=== PATIENT | female | born 1940 | race Caucasian/White ===

== ENCOUNTER → 2019-11-17 11:38 | Outpatient (BNVA) | payer MEDICARE, SELFPAY | PROVIDERS: Family Provider Nurse Practitioner; PCP Nurse Practitioner; Visit Provider Nurse Practitioner Family | DX: R42 Dizziness and giddiness (principal); R00.1 Bradycardia, unspecified; R53.83 Other fatigue; D50.9 Iron deficiency anemia, unspecified | CPT/HCPCS: 80053; 82607; 82728; 83550; 84443; 85025 ==

== ENCOUNTER 2020-10-09 06:00 | Outpatient (RCR) | payer MEDICARE, SELFPAY | END 2020-10-23 23:59 | disposition home or self-care (01) | LOC: APT 06:00 | PROVIDERS: Family Provider Nurse Practitioner; PCP Nurse Practitioner; Referring Provider Nurse Practitioner; Visit Provider Nurse Practitioner | DX: M79.7 Fibromyalgia (principal) | CPT/HCPCS: 97110; 97140; 97162 ==

== ENCOUNTER → 2020-10-16 10:51 | Outpatient (BNVA) | payer MEDICARE, SELFPAY | PROVIDERS: Family Provider Nurse Practitioner; PCP Nurse Practitioner; Visit Provider Nurse Practitioner | DX: R31.9 Hematuria, unspecified (principal) | CPT/HCPCS: 81000 ==

== ENCOUNTER 2020-10-24 06:00 | Outpatient (RCR) | payer MEDICARE, SELFPAY | END 2020-11-23 23:59 | disposition home or self-care (01) | LOC: APT 06:00 | PROVIDERS: Family Provider Nurse Practitioner; PCP Nurse Practitioner; Referring Provider Nurse Practitioner; Visit Provider Nurse Practitioner | DX: M79.7 Fibromyalgia (principal) | CPT/HCPCS: 97110; 97140 ==

== ENCOUNTER → 2021-01-24 08:44 | Outpatient (BNVA) | payer MEDICARE, SELFPAY | PROVIDERS: Family Provider Nurse Practitioner; PCP Nurse Practitioner; Visit Provider Nurse Practitioner Family | DX: R39.9 Unspecified symptoms and signs involving the genitourinary system (principal) | CPT/HCPCS: 81000 ==

== ENCOUNTER 2021-02-18 06:00 | Outpatient (RCR) | payer MEDICARE, SELFPAY | END 2021-02-23 23:59 | disposition home or self-care (01) | LOC: TPT 06:00 | PROVIDERS: PCP Nurse Practitioner; Referring Provider Nurse Practitioner; Visit Provider Nurse Practitioner | DX: M79.7 Fibromyalgia (principal) | CPT/HCPCS: 97110; 97162 ==

== ENCOUNTER → 2021-10-30 10:19 | Outpatient (BNVA) | payer MEDICARE, SELFPAY | PROVIDERS: PCP Nurse Practitioner; Visit Provider Nurse Practitioner Family | DX: R30.0 Dysuria (principal) | CPT/HCPCS: 81000 ==

== ENCOUNTER 2021-12-25 06:00 | Outpatient (RCR) | payer MEDICARE, SELFPAY | END 2022-01-23 23:59 | disposition home or self-care (01) | LOC: TPT 06:00 | PROVIDERS: PCP Nurse Practitioner; Visit Provider Nurse Practitioner | DX: M79.7 Fibromyalgia (principal) | CPT/HCPCS: 97110; 97162 ==

== ENCOUNTER 2022-01-24 06:00 | Outpatient (RCR) | payer MEDICARE, SELFPAY | END 2022-02-12 23:59 | disposition home or self-care (01) | LOC: TPT 06:00 | PROVIDERS: PCP Nurse Practitioner; Visit Provider Nurse Practitioner | DX: M79.7 Fibromyalgia (principal) | CPT/HCPCS: 97110; 97530 ==

== ENCOUNTER → 2022-02-02 11:35 | Outpatient (BNVA) | payer MEDICARE, SELFPAY | PROVIDERS: PCP Nurse Practitioner; Visit Provider Nurse Practitioner | DX: M54.9 Dorsalgia, unspecified (principal) | CPT/HCPCS: 81000 ==

== ENCOUNTER 2022-09-26 06:48 | Emergency (ER) | payer MEDICARE, SELFPAY ==
[2022-09-26 06:56] VITALS: PULSE 67; RESP 16; TEMP 36.6; O2SAT 100; BMI 19.3
--- NOTE | 2022-09-26 07:01 | XRR_ITS ---
PROCEDURE INFORMATION: Exam: XR Right Ankle Exam date and time: 09/26/2022 7:28 AM Age: 82 years old Clinical indication: Swelling, leg or foot; Additional info: Swelling, pain TECHNIQUE: Imaging protocol: Radiologic exam of the right ankle. Views: 3 or more views. COMPARISON: No relevant prior studies available. FINDINGS: Bones/joints: Osseous structures are intact. No fracture or malalignment. Visualized joint surfaces are preserved. Small plantar spur arising the calcaneus. Soft tissues: Unremarkable. XR/XR ankle RT min 3V* [id number] IMPRESSION: Small plantar spur otherwise negative exam. No acute bony abnormalities.
--- NOTE | 2022-09-26 07:01 | XRR_ITS ---
PROCEDURE INFORMATION: Exam: XR Right Foot Exam date and time: 09/26/2022 7:28 AM Age: 82 years old Clinical indication: Swelling, leg or foot; Additional info: Swelling, pain TECHNIQUE: Imaging protocol: Radiologic exam of the right foot. Views: 3 or more views. COMPARISON: No relevant prior studies available. FINDINGS: Bones/joints: There are prominent claw deformities 2nd through 5th digits. Small plantar spur noted. Joint surfaces fairly well preserved. No fracture, dislocation or other malalignment. Soft tissues: Normal. XR/XR foot RT min 3V* [id number] IMPRESSION: No acute bony abnormalities.
--- NOTE | 2022-09-26 07:01 | W.ED.GENADLT ---
HPI - General Adult General: Chief complaint: General Medical Stated complaint: tick bite swollen on right ankle Time Seen by Provider: 09/26/22 06:55 History of Present Illness: This patient is an 82 year old presenting with a tick bite on her right ankle. She noted a tick on Wednesday and is certain that she pulled the entire tick off at that time. Since then she has had redness and swelling and has been to twice for this. She is on doxycyline and mupirocin. She returns this morning to the ED because she feels like the swelling has returned to her foot. She denies fevers. She has stiffness in the ankle joint. She is generally healthy. She has a history of lupus but reports no health problems related to that. [facility] ED PFSH: Medical History Chronic rhinitis Enrolled in chronic care management Fibromyalgia Hyperlipidemia, unspecified Insomnia Osteoporosis Reclast yearly at [place] 2021 Vitamin D insufficiency Surgical History History of cataract surgery History of cholecystectomy History of colonoscopy 2021 [place] negative History of endoscopy 2021 [place] negative History of tonsillectomy History of tubal ligation Family History Other Cancer Diabetes Denies family history of Bleeding disorder Social History Smoking and tobacco status: never smoked Second hand smoke exposure: No Smoking risk assessment/counseling performed?: No Alcohol intake: never Desire information about alcohol rehabilitation?: No Counseling given: No Substance/Drug Use: never Desire information about substance/drug rehabilitation?: No Counseling given: No Adopted: No Caregiver/support person: No Lives independently: Yes Household members: spouse Housing: House Marital status: service: No Current occupational status: retired Do you think of yourself as: Straight/Heterosexual Current gender identity: Female Physical Exam Const: COMMON NORMALS: no acute distress, patient oriented x3, no limitations and alert GENERAL APPEARANCE: cooperative and comfortable HENMT: HEAD & SCALP: normal to inspection FACE & SINUS: normal facial exam Eye: GENERAL EYE: appearance normal, both eyes and all related structures Neck/C-Spine: COMMON NORMALS: supple and no meningeal signs Chest: COMMONS NORMALS: normal inspection of the chest Resp: EFFORT & INSPECTION: Yes able to speak in complete sentences and No respiratory distress Cardio: OTHER: normal peripheral perfusion Back/Pelvis: COMMON NORMALS: thoracic and lumbar spine normal to inspection Extremity: OTHER: right lateral ankle posterior to the malleolus has a patch of erythema - 3 cm in diameter - no central clearing. No purpura. There is mild swelling of the lateral mid foot without erythema. The ankle has some swelling with I think is in the subcut tissue rather than the joint. Good cap refill, pulses, sensation Neuro: COMMON NORMALS: patient oriented x3, moves all extremities, no focal motor deficits and no sensory deficits noted SENSORIUM/ORIENTATION: Yes alert MENINGEAL SIGNS: Yes no meningeal signs Psych: COMMON NORMALS: mental status grossly normal, cooperative and normal affect Skin: COMMON NORMALS: no rashes or lesions noted and turgor normal GENERAL SKIN EXAM: no rashes or lesions noted and turgor normal Course Vital Signs: Vital signs: Vital Signs Temperature 97.9 F 09/26/22 09:34 Pulse Rate 67 09/26/22 09:34 Respiratory Rate 16 09/26/22 09:34 Blood Pressure 155/61 09/26/22 09:34 Pulse Oximetry 100 09/26/22 09:34 Oxygen Delivery Me thod Room Air 09/26/22 06:56 MDM - General Adult Medical Decision Making Tick bit - 5 days ago. On appropriate treatment. Patient concerned about continued swelling present on awakening this morning. It appears that she had a bandage on the ankle as there are impressions on the skin - and this may be the reason for the swelling - however it is reasonable to check labs and xrays for any evidence of more serious infection or systemic illness. xrays, CBC, CMP, CRP, ESR pending. Work up in the ED unremarkable. Reassured and encouraged patience. Outpatient follow up. Continue doxycycline, elevation, light activity. Lab Data 09/26/22 07:26 09/26/22 07:26 Radiology Impressions Ankle X-Ray 09/26/22 07:01 IMPRESSION: Small plantar spur otherwise negative exam. No acute bony abnormalities. Foot X-Ray 09/26/22 07:01 IMPRESSION: No acute bony abnormalities. Laboratory Results WBC 3.9 10^3/uL (4.0-10.0) L 09/26/22 07: RBC 4.36 10^6/uL (4.1-5.3) 09/26/22 07:26 Hgb 13.6 g/dL (11.5-15.3) 09/26/22 07:26 Hct 43.8 % (37.0-47.0) 09/26/22 07: MCV 100.5 fl (81-99) H 09/26/22 07:26 MCH 31.2 pg (28.0-34.0) 09/26/22 07: MCHC 31.1 g/dL (30.0-36.0) 09/26/22 07: RDW 12.3 % (12.1-15.1) 09/26/22 07: Plt Count 189 10^3/cmm (130-400) 09/26/22 07: MPV 10.2 fL (7.4-10.4) 09/26/22 07:26 Neut % (Auto) 51.8 % 09/26/22 07:26 Lymph % (Auto) 34.5 % 09/26/22 07:26 [place] % (Auto) 11.4 % 09/26/22 07:26 Eos % (Auto) 1.5 % 09/26/22 07:26 Baso % (Auto) 0.5 % 09/26/22 07:26 Neut # (Auto) 2.04 10^3/uL (1.8-7.7) 09/26/22 07:26 Lymph # (Auto) 1.4 10^3/uL (0.8-4.8) 09/26/22 07:26 [place] # (Auto) 0.5 10^3/uL (0.2-0.9) 09/26/22 07:26 Eos # (Auto) 0.1 10^3/uL (0.0-0.8) 09/26/22 07:26 Baso # (Auto) 0.0 10^3/uL (0.0-0.1) 09/26/22 07:26 Nucleated RBC % (auto) 0 % 09/26/22 07:26 Nucleated RBCs # 0.0 /100WBC 09/26/22 07:26 ESR 15 mm/hr (0-15) 09/26/22 07:26 Sodium 135 mmol/L (136-145) L 09/26/22 07:26 Potassium 4.1 mmol/L (3.5-5.1) 09/26/22 07:26 Chloride 100 mmol/L (98-107) 09/26/22 07:26 Carbon Dioxide 24 mmol/L (22-29) 09/26/22 07:26 Anion Gap 15.1 (5-19) 09/26/22 07:26 BUN 10 mg/dL (8-23) 09/26/22 07:26 Creatinine 0.7 mg/dL (0.5-0.9) 09/26/22 07:26 GFR Calculation Not Reportable 09/26/22 07:26 Glucose 91 mg/dL (65-115) 09/26/22 07:26 Calculated Osmolality 279 mOsm/kg (285-295) L 09/26/22 07:26 Calcium 9.1 mg/dL (8.5-10.5) 09/26/22 07:26 Total Bilirubin 0.5 mg/dL (0.15-1.2) 09/26/22 07:26 AST 24 U/L (0-32) 09/26/22 07:26 ALT 21 U/L (0-33) 09/26/22 07:26 Alkaline Phosphatase 68 U/L (35-105) 09/26/22 07:26 C-Reactive Protein 9.2 mg/L (0.0-4.9) H 09/26/22 07:26 Total Protein 7.0 g/dL (6.6-8.7) 09/26/22 07:26 Albumin 4.1 g/dL (3.5-5.2) 09/26/22 07:26 Globulin 2.9 g/dL (1.3-4.6) 09/26/22 07:26 Discharge Plan Discharge Patient Disposition: Home Clinical Impression: Tick bite of ankle Condition: Stable Prescriptions: No Action fexofenadine [Nila Allergy] 60 mg tablet 60 mg PO DAILY polyethylene glycol 3350 [Miralax] 17 gram/dose powder 17 g PO BID psyllium husk [Daily Fiber] 0.52 gram capsule 0.52 g PO DAILY vitamin B complex Tablet 1 tab PO DAILY zolpidem 10 mg tablet 10 mg PO .nightly Qty: 90 1RF terconazole 0.4 % cream 1 appful vaginal .once daily 7 Days Qty: 45 0RF doxycycline hyclate 100 mg tablet 200 mg PO ONCE Qty: 2 0RF doxycycline hyclate 100 mg tablet 100 mg PO BID 10 Days Qty: 20 0RF mupirocin 2 % ointment 1 applic topical TID Qty: 22 0RF Discharge Orders: Discharge ED (Routine); Ordered 09/26/22 Ordered By: Kate Jensen Referrals: Anne Ponce, TRIMMING MACHINE OPERATOR-C [Primary Care Provider] - Discharge Diet: Usual diet Discharge Activity: Increase activity as tolerated Patient Instructions: Opioid Safety, Pain Management Activity Restrictions/Additional Instructions: Keep foot elevated when sitting and avoid prolonged periods of standing. Do not use any type of wrap or brace as this can interfere with circulation and make swelling worse. Coding Level of Care Code ED Associate Professor Of [employer] for [facility]
--- NOTE | 2022-09-26 07:03 | PC.NURSE ---
Pt placed on monitors, sitting on side of bed with spouse in room. Dr. Jensen at bedside.
[2022-09-26 07:35] LABS: Basophils % 0.5 %; Eosinophils # 0.1 10^3/uL (0.0-0.8); Eosinophils % 1.5 %; Hematocrit 43.8 % (37.0-47.0); Hemoglobin 13.6 g/dL (11.5-15.3); Lymphocytes # 1.4 10^3/uL (0.8-4.8); Lymphocytes % 34.5 %; Mean Corpuscular HGB Conc 31.1 g/dL (30.0-36.0); Mean Corpuscular Hemoglobin 31.2 pg (28.0-34.0); Mean Corpuscular Volume 100.5 fl (81-99); Mean Platelet Volume 10.2 fL (7.4-10.4); Monocytes # 0.5 10^3/uL (0.2-0.9); Monocytes % 11.4 %; Neutrophils # 2.04 10^3/uL (1.8-7.7); Neutrophils % 51.8 %; Nucleated Red Blood Cells % 0 %; Platelet Count 189 10^3/cmm (130-400); Red Blood Count 4.36 10^6/uL (4.1-5.3); Red Cell Distribution Width 12.3 % (12.1-15.1); White Blood Count 3.9 10^3/uL (4.0-10.0)
[2022-09-26 07:48] LABS: Erythrocyte Sedimentation Rate 15 mm/hr (0-15)
[2022-09-26 08:09] LABS: Alanine Aminotransferase 21 U/L (0-33); Albumin Level 4.1 g/dL (3.5-5.2); Alkaline Phosphatase 68 U/L (35-105); Anion Gap 15.1 (5-19); Aspartate Amino Transferase 24 U/L (0-32); Blood Urea Nitrogen 10 mg/dL (8-23); C Reactive Protein 9.2 mg/L (0.0-4.9); Calcium 9.1 mg/dL (8.5-10.5); Carbon Dioxide 24 mmol/L (22-29); Chloride 100 mmol/L (98-107); Creatinine Clr Calc Pharmacy 50.1656; Globulin 2.9 g/dL (1.3-4.6); Glucose 91 mg/dL (65-115); Osmolality Calculated 279 mOsm/kg (285-295); Potassium 4.1 mmol/L (3.5-5.1); Sodium 135 mmol/L (136-145); Total Bilirubin 0.5 mg/dL (0.15-1.2)
[2022-09-26 09:34] VITALS: BP 155/61; PULSE 67; RESP 16; TEMP 36.6; O2SAT 100
== END 2022-09-26 09:35 | disposition home or self-care (01) ==
PROVIDERS: Emergency Provider Emergency Medicine; PCP Nurse Practitioner
DX: S90.561A Insect bite (nonvenomous), right ankle, initial encounter (principal); W57.XXXA Bitten or stung by nonvenomous insect and other nonvenomous arthropods, initial encounter; E78.5 Hyperlipidemia, unspecified
CPT/HCPCS: 36415; 73610; 73630; 80053; 85025; 85651; 86140; 99284

== ENCOUNTER → 2022-12-03 09:21 | Outpatient (BNVA) | payer MEDICARE, SELFPAY | PROVIDERS: PCP Nurse Practitioner; Visit Provider Nurse Practitioner | DX: R39.9 Unspecified symptoms and signs involving the genitourinary system (principal); R10.9 Unspecified abdominal pain; B37.89 Other sites of candidiasis; B37.31 Acute candidiasis of vulva and vagina | CPT/HCPCS: 81000; 87086 ==

== ENCOUNTER → 2023-01-19 16:21 | Outpatient (BNVA) | payer MEDICARE, SELFPAY | PROVIDERS: PCP Nurse Practitioner; Visit Provider Nurse Practitioner Women's Health | DX: N95.2 Postmenopausal atrophic vaginitis (principal) | CPT/HCPCS: 88305; 88312 ==

== ENCOUNTER → 2023-01-25 10:39 | Outpatient (BNVA) | payer MEDICARE, SELFPAY | PROVIDERS: PCP Nurse Practitioner; Visit Provider Nurse Practitioner | DX: R20.8 Other disturbances of skin sensation (principal) | CPT/HCPCS: 87177; 87209 ==

== ENCOUNTER → 2023-02-24 11:39 | Outpatient (BNVA) | payer MEDICARE, SELFPAY | PROVIDERS: PCP Nurse Practitioner; Visit Provider Nurse Practitioner | DX: M54.50 Low back pain, unspecified (principal); M79.605 Pain in left leg | CPT/HCPCS: 72100; 87070; 87205 ==

== ENCOUNTER → 2023-04-07 12:05 | Outpatient (BNVA) | payer MEDICARE, SELFPAY | PROVIDERS: PCP Nurse Practitioner; Visit Provider Nurse Practitioner | DX: M79.7 Fibromyalgia (principal); F51.04 Psychophysiologic insomnia; L90.0 Lichen sclerosus et atrophicus | CPT/HCPCS: 82607 ==

== ENCOUNTER → 2023-06-02 08:21 | Outpatient (BNVA) | payer MEDICARE, SELFPAY | PROVIDERS: PCP Nurse Practitioner; Visit Provider Nurse Practitioner Family | DX: N39.0 Urinary tract infection, site not specified (principal); L90.0 Lichen sclerosus et atrophicus | CPT/HCPCS: 81000 ==

== ENCOUNTER → 2023-06-18 08:14 | Outpatient (BNVA) | payer MEDICARE, SELFPAY | PROVIDERS: PCP Nurse Practitioner; Visit Provider Nurse Practitioner | DX: E55.9 Vitamin D deficiency, unspecified (principal); E78.5 Hyperlipidemia, unspecified | CPT/HCPCS: 80053; 82306; 82607; 84443; 85025 ==

== ENCOUNTER 2023-06-28 06:08 | Emergency (ER) | payer MEDICARE, SELFPAY ==
--- NOTE | 2023-06-28 06:10 | ECG_ITS ---
[facility] Test Date: 2023-06-28 Pat Name: Joi Iglesias Department: Room: Gender: Female Electromedical Equipment Technician: : 1940 Requested By: Rubin Joseph Order Number: [id number] David MD: Juan Carlos Nieves M.D. Measurements Intervals [place] Rate: 62 P: 87 IA: 179 QRS: 51 QRSD: 106 T: 71 QT: 396 QTc: 404 Interpretive Statements SINUS RHYTHM POSSIBLE LEFT ATRIAL ENLARGEMENT [-0.1mV P-WAVE IN V1/V2] ANTEROSEPTAL MYOCARDIAL INFARCTION , OF INDETERMINATE AGE [40+ ms Q WAVE IN V1-V4] No previous ECG available for comparison Electronically Signed On 06-28-2023 8:46:19 AUTOCAD DETAILER by Juan Carlos Nieves M.D. [email or web address]
--- NOTE | 2023-06-28 06:11 | XRR_ITS ---
PROCEDURE INFORMATION: Exam: XR Chest Exam date and time: 06/28/2023 7:11 AM Age: 83 years old Clinical indication: Cough and dyspnea; Patient HX: High BP; Additional info: Dyspnea/cough TECHNIQUE: Imaging protocol: Radiologic exam of the chest. Views: 1 view. COMPARISON: No relevant prior studies available. FINDINGS: Lungs: Mildly hyperexpanded. No consolidation. Pleural spaces: Unremarkable. No pleural effusion. No pneumothorax. Heart/Mediastinum: Unremarkable. No cardiomegaly. Advanced diffuse vascular calcification noted. Bones/joints: Unremarkable. XR/XR chest 1V portable [id number] IMPRESSION: No acute findings.
--- NOTE | 2023-06-28 06:29 | ED_ITS ---
HPI - General Adult 2 General: Chief complaint: Recheck/Abnormal Lab/Rx Stated complaint: elevated bp Time Seen by Provider: 06/28/23 06:10 Source: patient Mode of arrival: ambulatory History of Present Illness: 83-year-old female presents emergency ro om level of blood pressure. She has had some recent relationship stresses at home she feels that that is what is causing her blood pressure to be elevated. She denies any chest pain no abdominal pain. She does not drink large amounts of caffeine. She denies any other specific medical issues. Looking in her chart she has had recurrent UTIs and fibromyalgia in the past. Relieving factors: none Exacerbating factors: none Associated symptoms: Deny chest pain, confusion, cough, diaphoresis, decreased appetite, dyspnea, fevers/chills, headache(s), malaise, nausea, rash, palpitations, seizures, short of breath, syncope, vomiting or weakness Review of Systems 2 Const: Denies: fever(s), chills, malaise or diaphoresis Card: Denies: chest pain, palpitations or syncope Resp: Denies: dyspnea GI: Denies: abdominal pain, nausea or vomiting : Denies: dysuria, urinary frequency or urinary urgency Musc: Denies: neck pain or back pain Skin/Breast: Denies: rash Neuro: Denies: headache(s) or confusion PFSH ED 2 PFSH: Medical History Osteoporosis Reclast yearly at [place] 2021 Insomnia Chronic rhinitis Vitamin D insufficiency Hyperlipidemia, unspecified Fibromyalgia Surgical History History of endoscopy 2021 [place] negative History of tubal ligation History of tonsillectomy History of cataract surgery History of cholecystectomy History of colonoscopy 2021 [place] negative Family History Other Cancer Diabetes Denies family history of Bleeding disorder Social History Smoking and tobacco/nicotine status: never used tobacco/nicotine Second hand smoke exposure: No Alcohol intake: never Substance/Drug Use: never Adopted: No Caregiver/support person: No Lives independently: Yes Household members: spouse Housing: House Marital status: service: No Current occupational status: retired Do you think of yourself as: Straight/Heterosexual Current gender identity: Female Physical Exam 2 Const: COMMON NORMALS: no acute distress GENERAL APPEARANCE: cooperative and comfortable ORIENTATION/CONSCIOUSNESS: Yes awake, Yes oriented to person, Yes oriented to place and Yes oriented to time HENMT: COMMON NORMALS: normocephalic, atraumatic and hearing grossly normal bilaterally HEAD & SCALP: normocephalic and atraumatic Resp: COMMON NORMALS: normal respiratory effort, No retractions, No use of accessory muscles and clear to auscultation bilaterally AUSCULTATION: clear to auscultation bilaterally Cardio: COMMON NORMALS: regular rate, regular rhythm and No murmurs present (Cardio) RATE: regular rate RHYTHM: regular rhythm GI: COMMON NORMALS: Soft to palpation and No hepatosplenomegaly present A USCULTATION: Yes normoactive bowel sounds PALPATION: Yes Soft to palpation, No Tenderness to palpation present (GI), No Guarding due to palpation present (GI) and Yes No hepatosplenomegaly present Extremity: COMMON NORMALS: normal to inspection, capillary refill normal, no clubbing, cyanosis or edema, no calf tenderness and no pedal edema Neuro: SENSORIUM/ORIENTATION: Yes oriented to person, Yes oriented to place and Yes oriented to time OTHER: No focal neurologic deficits are noted Skin: COMMON NORMALS: no rashes or lesions noted GENERAL SKIN EXAM: no rashes or lesions noted Course 2 Vital Signs: Vital signs: Vital Signs Temperature 97.6 F 06/28/23 06:33 Pulse Rate 68 06/28/23 08:01 Respiratory Rate 20 H 06/28/23 08:01 Blood Pressure 174/91 06/28/23 08:01 Pulse Oximetry 97 06/28/23 08:01 Oxygen Delivery Me thod Room Air 06/28/23 08:01 MDM - General Adult Medical Decision Making Labs and imaging reviewed blood pressure improved with medications given discharge patient home started on amlodipine 2.5 mg p.o. daily encouraged patient to follow-up with her primary care doctor within the next week to reevaluate blood pressure. Medical Records I reviewed the patient's medical records. Lab Data I reviewed the patient's lab results. 06/28/23 07:00 06/28/23 07:00 Radiology Impressions Chest X-Ray 06/28/23 06:11 IMPRESSION: No acute findings. Laboratory Results WBC 4.61 10^3/uL (3.29-11.43) 06/28/23 07:00 RBC 4.24 10^6/uL (3.85-5.65) 06/28/23 07:00 Hgb 13.90 g/dL (11.27-16.99) 06/28/23 07:00 Hct 40.2 % (36-47) 06/28/23 07:00 MCV 94.8 fl (85-98) 06/28/23 07:00 MCH 32.8 pg (27-33) 06/28/23 07:00 MCHC 34.6 g/dL (30-55) 06/28/23 07:00 RDW 11.9 % (12.1-15.1) L 06/28/23 07:00 Plt Count 210 10^3/cmm (157-399) 06/28/23 07:00 MPV 10.0 fL (7.4-10.4) 06/28/23 07:00 Neut % (Auto) 62.1 % 06/28/23 07:00 Lymph % (Auto) 27.3 % 06/28/23 07:00 [place] % (Auto) 9.8 % 06/28/23 07:00 Eos % (Auto) 0.4 % 06/28/23 07:00 Baso % (Auto) 0.2 % 06/28/23 07:00 Neut # (Auto) 2.86 10^3/uL (1.8-7.7) 06/28/23 07:00 Lymph # (Auto) 1.3 10^3/uL (0.8-4.8) 06/28/23 07:00 [place] # (Auto) 0.5 10^3/uL (0.2-0.9) 06/28/23 07:00 Eos # (Auto) 0.0 10^3/uL (0.0-0.8) 06/28/23 07:00 Baso # (Auto) 0.0 10^3/uL (0.0-0.1) 06/28/23 07:00 Nucleated RBC % (auto) 0 % 06/28/23 07:00 Nucleated RBCs # 0.0 /100WBC 06/28/23 07:00 Sodium 131 mmol/L (136-145) L 06/28/23 07:00 Potassium 4.2 mmol/L (3.5-5.1) 06/28/23 07:00 Chloride 95 mmol/L (98-107) L 06/28/23 07:00 Carbon Dioxide 25 mmol/L (22-29) 06/28/23 07:00 Anion Gap 15.2 (5-19) 06/28/23 07:00 BUN 11 mg/dL (8-23) 06/28/23 07:00 Creatinine 0.7 mg/dL (0.5-0.9) 06/28/23 07:00 GFR Calculation Not Reportable 06/28/23 07:00 Glucose 96 mg/dL (65-115) 06/28/23 07:00 Calculated Osmolality 271 mOsm/kg (285-295) L 06/28/23 07:00 Calcium 9.2 mg/dL (8.5-10.5) 06/28/23 07:00 Total Bilirubin 0.6 mg/dL (0.15-1.2) 06/28/23 07:00 AST 17 U/L (0-32) 06/28/23 07:00 ALT 14 U/L (0-33) 06/28/23 07:00 Alkaline Phosphatase 60 U/L (35-105) 06/28/23 07:00 Total Protein 6.4 g/dL (6.6-8.7) L 06/28/23 07:00 Albumin 4.1 g/dL (3.5-5.2) 06/28/23 07:00 Globulin 2.3 g/dL (1.3-4.6) 06/28/23 07:00 Urine Color Straw (Yellow) 06/28/23 08:25 Urine Appearance Clear (CLEAR) 06/28/23 08:25 Urine pH 8 (5-7) H 06/28/23 08:25 Ur Specific [place] 1.015 (1.005-1.030) 06/28/23 08:25 Urine Protein Neg (Negative) 06/28/23 08:25 Urine Glucose (UA) Norm (Normal) 06/28/23 08:25 Urine Ketones Negative (Negative) 06/28/23 08:25 Urine Blood Neg (Negative) 06/28/23 08:25 Urine Nitrate Negative (Negative) 06/28/23 08:25 Urine Bilirubin Neg (Negative) 06/28/23 08:25 Prot Sulfosalicylic Acd Negative (Negative) 06/28/23 08:25 Urine Urobilinogen Norm mg/dL (Negative) 06/28/23 08:25 Ur Leukocyte Esterase Negative (Negative) 06/28/23 08:25 All radiology interpretation(s) finalized by discharge Discharge Plan Discharge Patient Disposition: Home Clinical Impression: Elevated blood pressure reading Condition: Stable Prescriptions: New amlodipine 2.5 mg tablet 2.5 mg PO DAILY Qty: 30 0RF No Action fexofenadine [Nila Allergy] 60 mg tablet 60 mg PO DAILY polyethylene glycol 3350 [Miralax] 17 gram/dose powder 17 g PO BID psyllium husk [Daily Fiber] 0.52 gram capsule 0.52 g PO DAILY clobetasol 0.05 % ointment 1 applic topical BID PRN (Reason: lichen sclerosus) Qty: 45 0RF Adult 50 Plus Probiotic 4 billion cell capsule 4,000 mmu cells PO DAILY Qty: 30 0RF [place] 0.01 % (0.1 mg/gram) cream 1 g vaginal Q7D zolpidem 10 mg tablet 10 mg PO BEDTIME Discharge Orders: Discharge ED (Routine); Ordered 06/28/23 Ordered By: Rubin Riddle Referrals: Anne Ponce FNP-C [Primary Care Provider] - Discharge Diet: Usual diet Discharge Activity: Increase activity as tolerated Patient Instructions: Opioid Safety, Pain Management Activity Restrictions/Additional Instructions: Thank you for choosing [facility] for your healthcare needs today. Please realize this is an emergency room and that we are providing you with a medical screening exam and this may not be complete and all inclusive of all the testing and or work up that you may need to determine your ailment or severity of your illness. It is very important that you follow up as instructed or that you return to the Emergency Department should you have concerns or if your condition changes or worsens in any way. You were seen today for elevated blood pressure. Recommend you follow-up with your primary care doctor within the next week to reevaluate your blood pressure for now started on the amlodipine 2.5 mg once daily. Coding Level of Care Code ED Inspector [employer] for [facility]
[2023-06-28 06:33] VITALS: BP 184/76; PULSE 64; RESP 16; TEMP 36.4; O2SAT 98; BMI 21.6
[2023-06-28] MEDS: amlodipine 5 mg Tablet 2.5 MG PO (06:56)
[2023-06-28 07:13] VITALS: BP 173/93; PULSE 65; RESP 17; O2SAT 98
[2023-06-28 07:19] LABS: Basophils % 0.2 %; Eosinophils % 0.4 %; Hematocrit 40.2 % (36-47); Lymphocytes # 1.3 10^3/uL (0.8-4.8); Lymphocytes % 27.3 %; Mean Corpuscular HGB Conc 34.6 g/dL (30-55); Mean Corpuscular Hemoglobin 32.8 pg (27-33); Mean Corpuscular Volume 94.8 fl (85-98); Monocytes # 0.5 10^3/uL (0.2-0.9); Monocytes % 9.8 %; Neutrophils # 2.86 10^3/uL (1.8-7.7); Neutrophils % 62.1 %; Nucleated Red Blood Cells % 0 %; Platelet Count 210 10^3/cmm (157-399); Red Blood Count 4.24 10^6/uL (3.85-5.65); Red Cell Distribution Width 11.9 % (12.1-15.1); White Blood Count 4.61 10^3/uL (3.29-11.43)
[2023-06-28 07:30] LABS: Alanine Aminotransferase 14 U/L (0-33); Albumin Level 4.1 g/dL (3.5-5.2); Alkaline Phosphatase 60 U/L (35-105); Anion Gap 15.2 (5-19); Aspartate Amino Transferase 17 U/L (0-32); Blood Urea Nitrogen 11 mg/dL (8-23); Calcium 9.2 mg/dL (8.5-10.5); Carbon Dioxide 25 mmol/L (22-29); Chloride 95 mmol/L (98-107); Creatinine Clr Calc Pharmacy 51.5346; Globulin 2.3 g/dL (1.3-4.6); Glucose 96 mg/dL (65-115); Osmolality Calculated 271 mOsm/kg (285-295); Potassium 4.2 mmol/L (3.5-5.1); Sodium 131 mmol/L (136-145); Total Bilirubin 0.6 mg/dL (0.15-1.2); Total Protein 6.4 g/dL (6.6-8.7)
[2023-06-28] MEDS: hyDRALAzine 20 mg/mL INJ 1 mL 5 MG IVP (07:57)
[2023-06-28 08:01] VITALS: BP 174/91; PULSE 68; RESP 20; O2SAT 97
[2023-06-28 08:55] LABS: Add Urine Microscopic? NO; Charge for UA Resulting for Rev
[2023-06-28 09:04] LABS: Bilirubin Urine Neg (Negative); Blood Urine Neg (Negative); Glucose Urine UA Norm (Normal); Ketones Urine Negative (Negative); Leukocyte Esterase Urine Negative (Negative); Nitrate Urine Negative (Negative); Protein Urine Neg (Negative); Specific Gravity, Urine 1.015 (1.005-1.030); Sulfosalicylic Acid Urine Negative (Negative); Urine Appearance Clear (CLEAR); Urine Color Straw (Yellow); Urobilinogen Urine Norm (Negative); pH Urine 8 (5-7)
== END 2023-06-28 10:02 | disposition home or self-care (01) ==
PROVIDERS: Emergency Provider Family Medicine; PCP Nurse Practitioner
DX: R03.0 Elevated blood-pressure reading, without diagnosis of hypertension (principal); E78.5 Hyperlipidemia, unspecified; Z63.0 Problems in relationship with spouse or partner
CPT/HCPCS: 71045; 80053; 81003; 85025; 93005; 96374; 99285; J0360

== ENCOUNTER 2024-02-23 06:00 | Outpatient (RCR) | payer MEDICARE, SELFPAY | END 2024-02-24 23:59 | disposition home or self-care (01) | LOC: APT 06:00 | PROVIDERS: PCP Nurse Practitioner; Visit Provider Nurse Practitioner | DX: M54.50 Low back pain, unspecified (principal); M25.551 Pain in right hip | CPT/HCPCS: 97110; 97161 ==

== ENCOUNTER 2024-02-25 06:00 | Outpatient (RCR) | payer MEDICARE, SELFPAY | END 2024-03-25 23:59 | disposition home or self-care (01) | LOC: APT 06:00 | PROVIDERS: PCP Nurse Practitioner; Visit Provider Nurse Practitioner | DX: M54.50 Low back pain, unspecified (principal); M25.551 Pain in right hip | CPT/HCPCS: 97110; 97112; 97530 ==

== ENCOUNTER 2024-04-04 10:22 | Outpatient (RCR) | payer MEDICARE, SELFPAY | END 2024-04-25 23:59 | disposition home or self-care (01) | LOC: SPT 10:22 | PROVIDERS: PCP Nurse Practitioner; Visit Provider Nurse Practitioner | DX: N94.9 Unspecified condition associated with female genital organs and menstrual cycle (principal) | CPT/HCPCS: 97161 ==